=== PATIENT | female | born 1985 | race African-American/Black ===

== ENCOUNTER → 2019-08-17 | Emergency (ER) | payer OTHER ==
[~2019-08-17] VITALS: Ht 172.7 cm; Wt 98.9 kg
[~2019-08-17] MED LIST: DOXYCYCLINE 10100 MG PO; ULTRAM 50MG TAB50 MG PO
[2019-08-17 15:01] VITALS: BP 158/104
== END ==
LOC: ER 15:00
DX: L02.31 Cutaneous abscess of buttock (principal); E28.2 Polycystic ovarian syndrome